=== PATIENT | male | born 2000 | race American Indian/Alaskan Native ===

== ENCOUNTER 2018-01-20 18:28 | Emergency (ER) | payer OTHER ==
[2018-01-20 18:53] VITALS: BP 125/77
[2018-01-20] MEDS ORDERED: ULTRAM PO ONE (21:00)
[2018-01-20] MEDS ORDERED: AUGMENTIN 875 MG PO ONE (21:00)
[2018-01-20] MEDS ORDERED: BOOSTRIX IM ONE (21:02)
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
== END 2018-01-20 21:30 | disposition home or self-care (01) ==
LOC: ED 18:28
DX: S01.85XA Open bite of other part of head, initial encounter (principal); S21.152A Open bite of left front wall of thorax without penetration into thoracic cavity, initial encounter; F17.200 Nicotine dependence, unspecified, uncomplicated; Y04.1XXA Assault by human bite, initial encounter; Y93.89 Activity, other specified; Y92.89 Other specified places as the place of occurrence of the external cause; Y99.8 Other external cause status
CPT/HCPCS: 90715; 96372; 99282

== ENCOUNTER 2018-07-02 01:20 | Emergency (ER) | payer SELFPAY ==
[2018-07-02 01:34] VITALS: BP 141/87
[2018-07-02] MEDS ORDERED: MOTRIN PO ONE (01:40)
[2018-07-02] MEDS ORDERED: AUGMENTIN 875 MG PO ONE (01:40)
--- NOTE | 2018-07-02 01:45 | Emergency Department Report ---
ED ENT HPI - General Chief complaint: Earache Stated complaint: RT EAR PAIN Time Seen by Provider: 07/02/18 01:39 Source: patient Mode of arrival: Ambulatory Limitations: No Limitations - History of Present Illness Initial comments: Patient is a 18-year-old -[place] male who presents for right earache 3 days patient has history of AOM aching 6/10 nocturnal fever there is no sore throat mild frontal sinus pain no toothache MAXIMUM TEMPERATURE unknown no fever noted in triage to the MD complaint: ear pain (right ) Onset/Timin -: days(s) Location: R ear Severity: moderate Severity scale (0 -10): 5 Quality: aching Consistency: constant Improves with: rest Worsens with: position, movement Associated Symptoms: fever, tinnitus - Related Data Previous Rx's Medication Instructions Recorded Last Taken Type Amoxicillin/K Clav Tab [Augmentin 1 tab PO Q12HR #20 tab 01/20/18 Unknown Rx 875 mg] Ibuprofen [Motrin 800 MG tab] 800 mg PO Q8HR PRN #30 tablet 01/20/18 Unknown Rx Neomycin/Bacitracin/Polymyxinb 1 applic TP BID #1 tube 01/20/18 Unknown Rx [Neosporin Antibiotic Ointment] Amoxicillin/K Clav Tab [Augmentin 1 each PO BID 10 Days #20 tablet 07/02/18 Unknown Rx 875MG TAB] Ibuprofen [Motrin 800 MG tab] 800 mg PO ONCE PRN #30 tablet 07/02/18 Unknown Rx Allergies Allergy/AdvReac Type Severity Reaction Status Date / Time No Known Allergies Allergy Verified 07/02/18 01:34 ED Dental HPI - General Chief complaint: Earache Stated complaint: RT EAR PAIN Time Seen by Provider: 07/02/18 01:39 Source: patient Mode of arrival: Ambulatory Limitations: No Limitations - Related Data Previous Rx's Medication Instructions Recorded Last Taken Type Amoxicillin/K Clav Tab [Augmentin 1 tab PO Q12HR #20 tab 01/20/18 Unknown Rx 875 mg] Ibuprofen [Motrin 800 MG tab] 800 mg PO Q8HR PRN #30 tablet 01/20/18 Unknown Rx Neomycin/Bacitracin/Polymyxinb 1 applic TP BID #1 tube 01/20/18 Unknown Rx [Neosporin Antibiotic Ointment] Amoxicillin/K Clav Tab [Augmentin 1 each PO BID 10 Days #20 tablet 07/02/18 Unknown Rx 875MG TAB] Ibuprofen [Motrin 800 MG tab] 800 mg PO ONCE PRN #30 tablet 07/02/18 Unknown Rx Allergies Allergy/AdvReac Type Severity Reaction Status Date / Time No Known Allergies Allergy Verified 07/02/18 01:34 ED Review of Systems ROS: Stated complaint: RT EAR PAIN Other details as noted in HPI Constitutional: denies: chills, fever Eyes: denies: eye pain, eye discharge, vision change ENT: ear pain. denies: throat pain, dental pain, hearing loss, epistaxis, congestion Respiratory: denies: cough, shortness of breath, wheezing Cardiovascular: denies: chest pain, palpitations Endocrine: no symptoms reported Gastrointestinal: denies: abdominal pain, nausea, diarrhea Genitourinary: denies: urgency, dysuria Musculoskeletal: denies: back pain, joint swelling, arthralgia Skin: denies: rash, lesions Neurological: denies: headache, weakness, paresthesias Psychiatric: denies: anxiety, depression Hematological/Lymphatic: denies: easy bleeding, easy bruising ED Past Medical Hx - Past Medical History Previous Medical History?: No - Surgical History Past Surgical History?: No - Social History Smoking Status: Current Every Day Smoker Substance Use Type: None - Medications Home Medications: Home Medications Medication Instructions Recorded Confirmed Last Taken Type Amoxicillin/K Clav Tab [Augmentin 1 tab PO Q12HR #20 tab 01/20/18 Unknown Rx 875 mg] Ibuprofen [Motrin 800 MG tab] 800 mg PO Q8HR PRN #30 tablet 01/20/18 Unknown Rx Neomycin/Bacitracin/Polymyxinb 1 applic TP BID #1 tube 01/20/18 Unknown Rx [Neosporin Antibiotic Ointment] Amoxicillin/K Clav Tab [Augmentin 1 each PO BID 10 Days #20 tablet 07/02/18 Unknown Rx 875MG TAB] Ibuprofen [Motrin 800 MG tab] 800 mg PO ONCE PRN #30 tablet 07/02/18 Unknown Rx ED Physical Exam - General Limitations: No Limitations General appearance: alert, in no apparent distress - Head Head exam: Present: atraumatic, normocephalic - Eye Eye exam: Present: normal appearance - ENT ENT exam: Present: normal orophraynx, mucous membranes moist - Expanded ENT Exam Expanded Ear exam: Present: normal external inspection TM/Canal exam: Erythema: Right TM, Left TM, Effusion: Right TM, Canal Tenderness : Right TM Mouth exam: Present: normal external inspection. Absent: trismus, muffled voice Throat exam: Positive: normal inspection. Negative: tonsillar erythema, tonsillomegaly, tonsillar exudate, R peritonsillar mass, L peritonsillar mass - Neck Neck exam: Present: normal inspection, full ROM, lymphadenopathy. Absent: tenderness, thyromegaly - Respiratory Respiratory exam: Present: normal lung sounds bilaterally. Absent: respiratory distress, wheezes, stridor, chest wall tenderness - Cardiovascular Cardiovascular Exam: Present: regular rate, normal rhythm. Absent: systolic murmur, diastolic murmur, rubs, gallop - GI/Abdominal GI/Abdominal exam: Present: soft, normal bowel sounds. Absent: tenderness, bruit, hernia - Rectal Rectal exam: Present: deferred - Extremities Exam Extremities exam: Present: normal inspection - Back Exam Back exam: Present: normal inspection - Neurological Exam Neurological exam: Present: alert, oriented X3 - Psychiatric Psychiatric exam: Present: normal affect, normal mood - Skin Skin exam: Present: warm, dry, intact, normal color. Absent: rash ED Course Vital Signs 07/02/18 01:31 Temperature 98.5 F Pulse Rate 55 L Respiratory 18 Rate Blood Pressure 141/87 O2 Sat by Pulse 100 Oximetry ED Medical Decision Making - Medical Decision Making this is AOM, will tx for same with augmentin, ibuprofen, pt will follow up with pcp in 2-3 days [facility] pt verbalized agreement and understanding with discharge plan. Critical care attestation.: If time is entered above; I have spent that time in minutes in the direct care of this critically ill patient, excluding procedure time. ED Disposition Clinical Impression: AOM (acute otitis media) Qualifiers: Otitis media type: serous Laterality: bilateral Recurrence: recurrent Qualified Code(s): H65.06 - Acute serous otitis media, recurrent, bilateral Disposition: TO HOME OR SELFCARE Is pt being admited?: No Does the pt Need Aspirin: No Condition: Good Instructions: Otitis Media (ED) Prescriptions: Amoxicillin/K Clav Tab [Augmentin 875MG TAB] 1 each PO BID 10 Days #20 tablet Ibuprofen [Motrin 800 MG tab] 800 mg PO ONCE PRN #30 tablet PRN Reason: pain fever Referrals: [facility] [Outside] - 3-5 Days Forms: Work/School Release Form(ED) Time of Disposition: 01:48
== END 2018-07-02 02:01 | disposition home or self-care (01) ==
LOC: ED 01:20
DX: H65.06 Acute serous otitis media, recurrent, bilateral (principal); F17.200 Nicotine dependence, unspecified, uncomplicated
CPT/HCPCS: 99282

== ENCOUNTER 2018-12-04 09:43 | Emergency (ER) | payer OTHER ==
--- NOTE | 2018-12-04 11:45 | Emergency Department Report ---
Upper Extremity - HPI Chief Complaint: Extremity Problem,Nontraumatic Stated Complaint: THUMB INFECTED Time Seen by Provider: 12/04/18 11:33 Upper Extremity: Left Thumb Occurred When: >5 Days Severity: mild Symptoms: Yes Swelling, No Pain with Movement, No Deformity, No Limited Range of Movement, No Numbness, No Weakness, No Bruising/Ecchymosis, No Laceration or Abrasion Other History: Gorge is 18 yo male who presents with left thumb swelling for 2 weeks after picking at a callus. Penicillin improved swelling. ED Review of Systems ROS: Stated complaint: THUMB INFECTED Other details as noted in HPI Constitutional: denies: fever, malaise Neurological: denies: numbness, paresthesias ED Past Medical Hx - Past Medical History Previous Medical History?: No - Surgical History Past Surgical History?: No - Social History Smoking Status: Current Every Day Smoker Substance Use Type: Marijuana - Medications Home Medications: Home Medications Medication Instructions Recorded Confirmed Last Taken Type Amoxicillin/K Clav Tab [Augmentin 1 tab PO Q12HR #20 tab 01/20/18 Unknown Rx 875 mg] Ibuprofen [Motrin 800 MG tab] 800 mg PO Q8HR PRN #30 tablet 01/20/18 Unknown Rx Neomycin/Bacitracin/Polymyxinb 1 applic TP BID #1 tube 01/20/18 Unknown Rx [Neosporin Antibiotic Ointment] Amoxicillin/K Clav Tab [Augmentin 1 each PO BID 10 Days #20 tablet 07/02/18 Unknown Rx 875MG TAB] Ibuprofen [Motrin 800 MG tab] 800 mg PO ONCE PRN #30 tablet 07/02/18 Unknown Rx Sulfamethoxazole/Trimethoprim 1 each PO BID 10 Days #20 tablet 12/04/18 Unknown Rx [Bactrim DS TAB] cephALEXin [Keflex] 500 mg PO Q6HR 10 Days #40 capsule 12/04/18 Unknown Rx Upper Extremity Exam - Exam General: Vital signs noted. No distress. Alert and acting appropriately. Head and Torso: No HEENT Abnormality, No Chest/Lungs Abnormality Wrist: Yes Normal ROM in Wrist, No Wrist Tenderness, No Wrist Deformity Hand: Yes Normal ROM in Digit(s) (left thumb callus, proximal edema, FROM at MCP and IP, no fluctuance), No Hand Tenderness, No Hand Deformity, No Digit Tenderness ED Course Vital Signs 12/04/18 10:23 Temperature 98.0 F Pulse Rate 69 Respiratory 20 Rate Blood Pressure 125/47 O2 Sat by Pulse 100 Oximetry ED Medical Decision Making - Medical Decision Making left thumb localized cellulitis without fluctuance to suggest abscess, rx: bactrim and keflex referred to orthopedic surgeon Critical care attestation.: If time is entered above; I have spent that time in minutes in the direct care of this critically ill patient, excluding procedure time. ED Disposition Clinical Impression: Cellulitis of thumb, left Disposition: DC-01 TO HOME OR SELFCARE Is pt being admited?: No Does the pt Need Aspirin: No Condition: Stable Instructions: Cellulitis (ED) Prescriptions: Sulfamethoxazole/Trimethoprim [Bactrim DS TAB] 1 each PO BID 10 Days #20 tablet cephALEXin [Keflex] 500 mg PO Q6HR 10 Days #40 capsule [facility] Care Provider] - 3-5 Days GABRIEL CHAUHAN MD [Staff Physician] - 3-5 Days
== END 2018-12-04 11:55 | disposition home or self-care (01) ==
LOC: ED 09:43
CPT/HCPCS: 99282